=== PATIENT | male | born 1955 | race Caucasian/White ===

== ENCOUNTER → 2018-02-07 | Day surgery (SDC) | payer OTHER ==
[~2018-02-07] MED LIST: AMLODIPINE BESYL5 M1 PO; BACITRACIN ZIN120 GM TOP; CAPHOSOL900 ML PO; CYCLOBENZAPRINE5 M2 PO; DIFLUCAN100 M1 PO; LIDOCAINE HCL V15 ML PO; NEUPOGEN480 MCG/1. SC; OMEGA-31000 M1 PO; PERCOCET 5-3251 EACH PO; TRANSDERM-SCOP1 EACH TOP; [UNRECOGNIZED DRUG - OTHER] PO
--- NOTE | 2018-02-07 15:20 | Operative Report ---
Operative/Inv Procedure Report Surgery Date: 02/07/18 Name of Procedure: right renal ESWL/fluoroscopy Pre-Operative Diagnosis: right renal colic with stone Post-Operative Diagnosis: same Estimated Blood Loss: none Surgeon/Client Customer Manager: Eleuterio Lara MD Anesthesia: moderate sedation Drains: none Specimens: none Complications: none Operative/Procedure Note Note: The patient was taken to the operating room placed on the OR table in supine position. Timeout was performed, with the patient awake, in order to confirm correct procedure, laterality, anesthesia, and other pertinent perioperative information. After adequate anesthesia and antibiotics, the patient was then positioned over the ESWL table cutout overlying the treatment dome. Fluoroscopy, using AP and oblique views, as well as renal ultrasound, or performed in order to locate the stone. The position of the RIGHT renal stone was optimized, and positioned in the middle of the ESWL crosshairs. The stone was measured to be approximately 6 mm in size. ESWL was initiated at low power, and after 200 shockwaves delivered , noting the patient's tolerance to the shockwaves, the power was increased to maximum. At the end of 2500 shockwaves, fluoroscopy confirms the change in consistency of the stone, indicating shattering of the stone. All sponge needle and instrument count were correct at the end of the case. The patient tolerated the procedures well, and was taken to the recovery room in satisfactory condition. The patient is discharged home with pain medication, and follow-up instructions with in 2-3 weeks' time. Discharge Disposition: Same Day Admissions CC: Eleuterio Lara MD
== END ==
LOC: STS 07:00
DX: N20.0 Calculus of kidney (principal); Z87.442 Personal history of urinary calculi; I10 Essential (primary) hypertension; Z85.89 Personal history of malignant neoplasm of other organs and systems; N43.3 Hydrocele, unspecified